=== PATIENT | female | born 1995 | race American Indian/Alaskan Native ===

== ENCOUNTER 2017-06-07 17:45 | Emergency (ER) | payer SELFPAY ==
[2017-06-07 19:07] VITALS: BP 96/78
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
== END 2017-06-08 06:05 | disposition home or self-care (01) ==
LOC: ED 17:45
DX: S39.012A Strain of muscle, fascia and tendon of lower back, initial encounter (principal); G43.009 Migraine without aura, not intractable, without status migrainosus; V49.40XA Driver injured in collision with unspecified motor vehicles in traffic accident, initial encounter; Y93.89 Activity, other specified; Y99.8 Other external cause status; Y92.410 Unspecified street and highway as the place of occurrence of the external cause
CPT/HCPCS: 99282

== ENCOUNTER 2021-06-29 16:02 | Emergency (ER) | payer OTHER ==
[2021-06-29 18:21] VITALS: BP 117/67
[2021-06-29] MEDS ORDERED: ONDANSETRON 4 MG ODT TAB PO ONE (18:50)
[2021-06-29] MEDS ORDERED: KETOROLAC 10 MG TAB PO ONE (18:50)
--- NOTE | 2021-06-29 20:07 | Ultrasound Report ---
ULTRASOUND PELVIS, COMPLETE INDICATION: Abnormal uterine bleeding COMPARISON: No relevant prior imaging study available. TECHNIQUE: Transabdominal imaging was performed. FINDINGS: Uterus: No significant abnormality. Endometrial echo complex measures 4 mm. Right ovary: No significant abnormality. Flow is seen to the right ovary. Left ovary: No significant abnormality. Flow is seen to the left ovary. Additional findings: There is no free fluid in the pelvis. IMPRESSION: Unremarkable pelvic ultrasound. Signer Name: Clarence Velasquez MD Signed: 06/29/2021 8:03 PM Workstation Name: [id number]
[2021-06-29 20:22] LABS: Hemoglobin 10.5 gm/dl (10.1-14.3); Mean Corpuscular HGB Conc 32 % (30-34); Mean Corpuscular Volume 72 fl (79-97); Platelet Count 512 K/mm3 (140-440); Red Blood Count 4.59 M/mm3 (3.65-5.03)
[2021-06-29 21:55] LABS: Bilirubin,Urine NEG (Negative); Blood,Urine MOD (Negative); Color,Urine Yellow (Yellow); Mucus,Urine 1+ /HPF; Protein,Urine <15 mg/dL mg/dL (Negative); Urobilinogen,Urine < 2.0 mg/dL (<2.0)
--- NOTE | 2021-06-29 22:09 | Emergency Department Report ---
ED Female HPI - General Chief complaint: Vaginal Bleeding Stated complaint: ABD PAIN Time Seen by Provider: 06/29/21 18:27 Source: patient Mode of arrival: Ambulatory Limitations: No Limitations - History of Present Illness Initial comments: 25 yof with pmh of PCOS presents to ed for evaluation of 6 month history of vaginal bleeding and abdominal pain that started today. She states that she saturates 6-7 pads per day and is now passing blood clots. She denies fever, n/v/d, dizziness but has had some weakness. MD Complaint: vaginal bleeding -: Gradual, month(s) (6) Location: LLQ, RLQ Radiation: non-radiating Severity scale (0 -10): 5 Quality: cramping, aching Consistency: constant Are you Now?: No Associated Symptoms: vaginal bleeding, abdominal pain. denies: vaginal discharge, nausea/vomiting, fever/chills, headaches, loss of appetite, dysuria, hematuria, rash, seizure, shortness of breath, syncope, weakness - Related Data Sexually active: Yes Previous Rx's Medication Instructions Recorded Last Taken Type Cyclobenzaprine HCl [Flexeril 5 MG 5 mg PO TID PRN #20 tab 06/08/17 Unknown Rx TAB] Ibuprofen [Ibuprofen 800] 800 mg PO Q6H PRN #20 tablet 06/08/17 Unknown Rx Naproxen [Naprosyn] 500 mg PO BID #14 tab 06/29/21 Unknown Rx Allergies Allergy/AdvReac Type Severity Reaction Status Date / Time No Known Allergies Allergy Verified 06/07/17 19:01 ED Review of Systems ROS: Stated complaint: ABD PAIN Other details as noted in HPI Comment: All other systems reviewed and negative Constitutional: weakness. denies: chills, diaphoresis, fever, malaise Eyes: denies: eye pain, eye discharge ENT: denies: ear pain, throat pain Respiratory: denies: cough, orthopnea, shortness of breath, SOB with exertion, SOB at rest, stridor, wheezing Cardiovascular: denies: chest pain, palpitations, dyspnea on exertion, orthopnea, edema, syncope, paroxysmal nocturnal dyspnea Endocrine: no symptoms reported Gastrointestinal: abdominal pain. denies: nausea, vomiting, diarrhea, constipation, hematemesis, melena, hematochezia Genitourinary: denies: urgency, dysuria, frequency, hematuria, discharge, abnormal menses, dyspareunia Musculoskeletal: denies: back pain, joint swelling, arthralgia, myalgia Skin: denies: rash, lesions, change in color, change in hair/nails, pruritus Neurological: denies: headache, weakness, numbness, paresthesias, confusion, abnormal gait, vertigo Psychiatric: denies: anxiety, depression Hematological/Lymphatic: denies: easy bleeding, easy bruising ED Past Medical Hx - Past Medical History Additional medical history: heart murmur - Social History Smoking Status: Never Smoker Substance Use Type: None - Medications Home Medications: Home Medications Medication Instructions Recorded Confirmed Last Taken Type Cyclobenzaprine HCl [Flexeril 5 MG 5 mg PO TID PRN #20 tab 06/08/17 Unknown Rx TAB] Ibuprofen [Ibuprofen 800] 800 mg PO Q6H PRN #20 tablet 06/08/17 Unknown Rx Naproxen [Naprosyn] 500 mg PO BID #14 tab 06/29/21 Unknown Rx ED Physical Exam - General Limitations: No Limitations General appearance: alert, in no apparent distress - Head Head exam: Present: atraumatic, normocephalic - Neck Neck exam: Present: normal inspection - Respiratory Respiratory exam: Present: normal lung sounds bilaterally. Absent: respiratory distress, wheezes, rales, rhonchi, chest wall tenderness, accessory muscle use - Cardiovascular Cardiovascular Exam: Present: regular rate, normal heart sounds - GI/Abdominal GI/Abdominal exam: Present: soft, normal bowel sounds. Absent: distended, tenderness, guarding, rebound, rigid - Extremities Exam Extremities exam: Present: normal inspection - Back Exam Back exam: Present: normal inspection, full ROM, CVA tenderness (R). Absent: CVA tenderness (L) - Neurological Exam Neurological exam: Present: alert, oriented X3 - Psychiatric Psychiatric exam: Present: normal affect, normal mood - Skin Skin exam: Present: warm, dry, intact, normal color ED Course Vital Signs 06/29/21 06/29/21 06/29/21 18:19 19:29 23:16 Temperature 98.3 F Pulse Rate 70 73 Respiratory 16 16 16 Rate Blood Pressure 117/67 [Left] O2 Sat by Pulse 97 100 Oximetry ED Medical Decision Making - Lab Data Result diagrams: 06/29/21 19:31 - Radiology Data Radiology results: report reviewed US pelvis complete- unremarkable. - Medical Decision Making 25 yof with pmh of PCOS presents to ed for evaluation of 6 month history of vaginal bleeding and abdominal pain that started today. She states that she saturates 6-7 pads per day and is now passing blood clots. She denies fever, n/v/d, dizziness but has had some weakness. US pelvis complete is unremarkable, and no significant abnormalities on cbc or UA. Patient will be treated with 7 day coarse of Naproxen for vaginal bleeding and advised to follow up with mold sheet cleaner for further evaluation. She was advised to follow up in the ED for worsening symptoms. She verbalized understanding of and agreement with plan of care. Critical care attestation.: If time is entered above; I have spent that time in minutes in the direct care of this critically ill patient, excluding procedure time. ED Disposition Clinical Impression: Abnormal vaginal bleeding Disposition: 01 HOME / SELF CARE / HOMELESS Is pt being admited?: No Does the pt Need Aspirin: No Condition: Stable Instructions: Abnormal Uterine Bleeding, [id number], Dysfunctional Uterine Bleeding Additional Instructions: Take medications as prescribed. Follow-up with FINAL INST[employer] INSPECTOR for further evaluations. Return to the emergency department if worsening symptoms. Prescriptions: Naproxen [Naprosyn] 500 mg PO BID #14 tab Referrals: JEMMA FARLEY MD [Primary Care Provider] - 3-5 Days Forms: Work/School Release Form(ED) Time of Disposition: 22:09
== END 2021-06-29 23:09 | disposition home or self-care (01) ==
LOC: ED 16:02
DX: N93.9 Abnormal uterine and vaginal bleeding, unspecified (principal)
CPT/HCPCS: 36415; 76856; 81001; 85027; 99284; J3490; Q0162